=== PATIENT | male | born 1955 | race Caucasian/White ===

== ENCOUNTER 2022-08-17 08:49 | Outpatient (OUT) | payer MEDICARE, OTHER, SELFPAY ==
--- NOTE | 2022-08-17 09:46 | CT_ITS ---
[address] [address] Patient Name: MATIAS SUERO MRN: [id number] date: 1955 Sex: M Assigned Patient Location: CT Current Patient Location: CT Accession/Order Number: [id number] Exam Date: 08/17/2022 10:00 Report Date: 08/17/2022 15:44 At the request of: KELVIN WATTS Procedure: CT lung screening low-dose EXAMINATION: CT lung screening low-dose HISTORY: H/O tobacco abuse Z87.891, Nicotine dependence F17.210 COMPARISON: CT chest 08/15/2021 TECHNIQUE: Axial, Coronal, and Sagittal images were created without the administration of IV contrast material. Dose reduction techniques were achieved by using automated exposure control and/or adjustment of mA and/or kV according to patient size and/or use of iterative reconstruction technique. FINDINGS: LUNGS: Stable appearance of a few calcified nodules compatible with chronic granulomas. Moderate emphysematous changes and mild bronchiectasis. PLEURA: No mass, effusion, or pneumothorax. VASCULATURE: No abnormality. NOA: Calcified lymph nodes compatible with chronic granulomatous disease. MEDIASTINUM: No mass or pathologic adenopathy. CARDIAC: No enlargement, pericardial thickening, or significant calcification. AORTA: No aneurysm or dissection. CHEST WALL: No mass or axillary adenopathy BONES: No bone lesion or fracture. LIMITED ABDOMEN: Sludge within gallbladder. Limited images of the upper abdomen. OTHER: Negative. IMPRESSION: 1. Lung-RADS Category 1 Negative. No nodules and definitely benign nodules. Continue annual screening with LDCT in 12 months. Electronically authenticated by: BRIAN STANLEY Date: 08/17/2022 15:44
== END 2022-08-17 08:50 ==
LOC: CT 08:54
PROVIDERS: PCP Family Medicine; Visit Provider Internal Medicine
DX: Z87.891 Personal history of nicotine dependence (principal); Z12.2 Encounter for screening for malignant neoplasm of respiratory organs
CPT/HCPCS: 71271

== ENCOUNTER 2022-08-17 08:57 | Outpatient (OUT) | payer MEDICARE, OTHER, SELFPAY ==
[2022-08-17 10:27] LABS: Alanine Aminotransferase 30 U/L (16-63); Albumin Level 3.8 g/dL (3.4-5.0); Alkaline Phosphatase 146 U/L (46-116); Aspartate Amino Transferase 23 U/L (15-37); Bilirubin Direct 0.1 mg/dL (0.0-0.2); Bilirubin Total 0.5 mg/dL (0.2-1.0); Chol HDL Ratio 3.1; Cholesterol 186 mg/dL (<=200); Globulin 3.8 g/dL; HDL Cholesterol 60 mg/dL (40-60); LDL Cholesterol Calculated 110.4 mg/dL; Total Protein 7.6 g/dL (6.4-8.2); Triglycerides 78 mg/dL (<=150); VLDL CHOLESTEROL 15.6 mg/dL
== END 2022-08-17 08:58 | disposition home or self-care (01) ==
LOC: LAB 08:58
PROVIDERS: PCP Family Medicine; Visit Provider Nurse Practitioner Family
DX: E78.2 Mixed hyperlipidemia (principal)
CPT/HCPCS: 36415; 80061; 80076

== ENCOUNTER 2023-01-05 14:38 | Emergency (ER) | payer MEDICARE, OTHER, SELFPAY ==
[2023-01-05 14:47] VITALS: BP 127/83; PULSE 95; RESP 18; TEMP 36.7; O2SAT 96; BMI 23.2
--- NOTE | 2023-01-05 14:47 | XR_ITS ---
The [address] [address] Patient Name: MATIAS SUERO MRN: [id number] date: 1955 Sex: M Assigned Patient Location: ED.MAIN Current Patient Location: ED.MAIN Accession/Order Number: [id number] Exam Date: 01/05/2023 14:55 Report Date: 01/05/2023 15:22 At the request of: ELFEGO GREENE Procedure: XR hand LT min 3V STUDY: XR hand LT min 3V, [id number] HISTORY: drill bit laceration left 1st dorsal webspace COMPARISON: None FINDINGS: No acute fracture, dislocation, or suspicious osseous lesion. No radiopaque foreign body. 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 Similar to the lesser degenerative changes throughout the remainder of the hand XR/XR hand LT min 3V IMPRESSION: No acute fracture or radiopaque foreign body. Electronically authenticated by: EMELINA THOMPSON Date: 01/05/2023 15:22
--- NOTE | 2023-01-05 14:49 | ED.WOUNDLAC1 ---
Documented by User: HARVEY Urias 01/05/23 15:23 HPI - Wound/Laceration General Chief Complaint: Wound/Laceration Stated Complaint: UPPER EXTREMITY INJURY LEFT HAND Time Seen by Provider: 01/05/23 14:44 History of Present Illness HPI narrative: 67-year-old male presents to the Emergency Room for evaluation of laceration left dorsal hand 1st dorsal web space. Patient states he was using a drill when the bit broke and subsequently stabbed into his dorsal hand. Patient did not have to undergo out of the soft tissues. He is unsure of his last tetanus, bleeding present but controlled. Patient has a abrasion to the 4th metacarpal ray just proximal to the MCP joint that happened earlier in the day. Patient appears in no distress. Patient states the other half of the drill bit was found he does not believe anything is retained within his skin. Patient reports pain is tolerable, but could tell that he needed sutures by the size of the laceration and bleeding. Onset (ago): minute(s) Location: Reports other (left hand) Extremity Location: Left: hand Place: Reports home Related Data Previous Rx's Medication Instructions Recorded cephalexin 500 mg capsule 500 mg PO TID 5 days #15 caps 01/05/23 Allergies Allergy/AdvReac Type Severity Reaction Status Date / Time No Known Drug Allergies Allergy Verified 01/05/23 14:47 Review of Systems ROS Constitutional Denies: fever, chills or change in weight Ears, nose, mouth, and throat Denies: throat pain, neck pain or throat swelling Cardiovascular Denies: chest pain or palpitations Respiratory Denies: shortness of breath Gastrointestinal Denies: abdominal pain or nausea Musculoskeletal Reports: extremity pain; Denies: back pain or neck pain Integumentary/Breast Denies: rash Neurological Denies: headache PFSH PFSH Social History Smoking status: Former smoker Exam Narrative Exam Narrative: Nurse's notes and vital signs reviewed. Patient is not hypoxic. General: The patient appears well and in no apparent distress. Patient is resting comfortably on cart. Skin: Warm, dry, no pallor noted.2 cm irregular-shaped laceration 1st dorsal webspace left hand, minimal redness bleeding. Head: Normocephalic, atraumatic Eye: Normal conjunctiva Respiratory: Patient is in no distress Musculoskeletal: The left wrist shows no obvious deformity. positive soft tissue skin laceration. waiting controlled, patient is able to make the okay sign without difficulty opposing thumb to all digits. He denies any numbness or tingling. Patient also demonstrates thumb abduction without difficulty. No evidence of nerve or motor palsy. There was no swelling noted. The patient had full range of motion of the thumb and index finger. The patient had tenderness noted just to the laceration. The patient had no tenderness in the anatomical snuff box. The patient had no pain with axial loading of the thumb. no pain with gentle stressing of the ulnar collateral. Pulses are intact at brachial and radial 2+. There was no deficit at the elbow or shoulder. The patient has normal capillary refill to all distal digits. The patient has no evidence of cyanosis or mottling. The patient is able to flex and extend all digits without difficulty. Neurological: A&O x4, normal sensory, normal motor Psychiatric: Cooperative Constitutional Vital Signs, click to edit/add: Last Vital Signs Temp 98.0 F 01/05/23 14:47 Pulse 88 01/05/23 15:22 Resp 18 01/05/23 15:22 BP 127/83 01/05/23 14:47 Pulse Ox 95 01/05/23 15:22 O2 Del Method Room Air 01/05/23 14:47 Course Vital Signs Vital signs: Vital Signs Temperature 98.0 F 01/05/23 14:47 Pulse Rate 95 H 01/05/23 14:47 Respiratory Rate 18 01/05/23 14:47 Blood Pressure 127/83 01/05/23 14:47 Pulse Oximetry 96 01/05/23 14:47 Oxygen Delivery Method Room Air 01/05/23 14:47 Temperature 98.0 F 01/05/23 14:47 Pulse Rate 88 01/05/23 15:22 Respiratory Rate 18 01/05/23 15:22 Blood Pressure 127/83 01/05/23 14:47 Pulse Oximetry 95 01/05/23 15:22 Oxygen Delivery Method Room Air 01/05/23 14:47 MDM - Wound/Laceration MDM Narrative Medical decision making narrative: patient's tetanus was updated. Discussed thorough irrigation, x-ray performed to rule out retained foreign body or fracture. Injury appears to be soft tissue only 1st dorsal webspace with impedance on function. No numbness or tingling. wound care discussed. reviewed environment that the drilling happened, recommend Keflex three times a day for five days. Patient agreeable, we'll focus on ice and elevation. The patient is to followup with primary care physician in next 2-3 days for wound recheck and removal of sutures in 10 days or to return to the emergency department should any of the signs or symptoms worsen or new symptoms develop. Patient had questions answered. The patient agrees with the following Diagnosis and Treatment plan and the patient will be discharged home. Discharge Plan Discharge Chief Complaint: Wound/Laceration Clinical Impression: Laceration of hand, left Patient Disposition: Home, Self-Care Time of Disposition Decision: 15:00 Condition: Good Mode of Transportation: Private Vehicle Prescriptions / Home Meds: New cephalexin 500 mg capsule 500 mg PO TID 5 Days Qty: 15 0RF Instructions: Laceration (ED) Additional Instructions: Recommend wound recheck in 2-3 days and suture removal in ten days Stand Alone Forms: Portal Instructions Referrals: Werner Cobb MD [Primary Care Provider] - 1 week Discharge Date/Time: 01/05/23 15:25 Procedures ED Laceration Laceration Laceration 1: Additional comments: Laceration repair: Done under sterile conditions. The use of Betadine was used to prep and clean the area. Local injection with lidocaine 1% was used, approximately3 cc. The wound was irrigated copiously with normal saline. The wound was explored there was no evidence of foreign material. The laceration was approximated with 4-0 nylon. 4 simple interrupted sutures were placed. Patient tolerated the procedure well. The patient was neurovascularly intact post. the patient had bacitracin applied to the laceration and a dry sterile dressing was place. The patient will need to follow-up in the next 10 days for removal. Documented by User: Aristeo Gandara MD 01/05/23 18:53 HPI - Wound/Laceration General Chief Complaint: Wound/Laceration Stated Complaint: UPPER EXTREMITY INJURY LEFT HAND Time Seen by Provider: 01/05/23 14:44 Related Data Previous Rx's Medication Instructions Recorded cephalexin 500 mg capsule 500 mg PO TID 5 days #15 caps 01/05/23 Allergies Allergy/AdvReac Type Severity Reaction Status Date / Time No Known Drug Allergies Allergy Verified 01/05/23 14:47 PFSH PFSH Social History Smoking status: Former smoker Exam Constitutional Vital Signs, click to edit/add: Last Vital Signs Temp 98.0 F 01/05/23 14:47 Pulse 88 01/05/23 15:22 Resp 18 01/05/23 15:22 BP 127/83 01/05/23 14:47 Pulse Ox 95 01/05/23 15:22 O2 Del Method Room Air 01/05/23 14:47 Course Vital Signs Vital signs: Vital Signs Temperature 98.0 F 01/05/23 14:47 Pulse Rate 95 H 01/05/23 14:47 Respiratory Rate 18 01/05/23 14:47 Blood Pressure 127/83 01/05/23 14:47 Pulse Oximetry 96 01/05/23 14:47 Oxygen Delivery Method Room Air 01/05/23 14:47 Temperature 98.0 F 01/05/23 14:47 Pulse Rate 88 01/05/23 15:22 Respiratory Rate 18 01/05/23 15:22 Blood Pressure 127/83 01/05/23 14:47 Pulse Oximetry 95 01/05/23 15:22 Oxygen Delivery Method Room Air 01/05/23 14:47 MDM - Wound/Laceration MDM Narrative Medical decision making narrative: patient's tetanus was updated. Discussed thorough irrigation, x-ray performed to rule out retained foreign body or fracture. Injury appears to be soft tissue only 1st dorsal webspace with impedance on function. No numbness or tingling. wound care discussed. reviewed environment that the drilling happened, recommend Keflex three times a day for five days. Patient agreeable, we'll focus on ice and elevation. The patient is to followup with primary care physician in next 2-3 days for wound recheck and removal of sutures in 10 days or to return to the emergency department should any of the signs or symptoms worsen or new symptoms develop. Patient had questions answered. The patient agrees with the following Diagnosis and Treatment plan and the patient will be discharged home. I, Dr Gandara, have reviewed the above progress note and course of action in the ER; agree with the above. I have gone over history and physical, and discussed disposition and treatment plan with the patient. Discharge Plan Discharge Chief Complaint: Wound/Laceration Clinical Impression: Laceration of hand, left Patient Disposition: Home, Self-Care Time of Disposition Decision: 15:00 Condition: Good Mode of Transportation: Private Vehicle Prescriptions / Home Meds: New cephalexin 500 mg capsule 500 mg PO TID 5 Days Qty: 15 0RF Instructions: Laceration (ED) Additional Instructions: Recommend wound recheck in 2-3 days and suture removal in ten days Stand Alone Forms: Portal Instructions Referrals: Werner Cobb MD [Primary Care Provider] - 1 week Discharge Date/Time: 01/05/23 15:25
[2023-01-05] MEDS: BACITRACIN 0.9 GM PACKET 1 PACKET TOPICAL (15:01)
[2023-01-05] MEDS: LIDOCAINE HCL 1% PF 50 MG/5 ML VIAL INJ (15:01)
[2023-01-05] MEDS: ADACEL DIPH,PERTUSS(ACELL),TET VAC/PF 0.5 ML ADULT SYRINGE IM (15:02)
[2023-01-05] MEDS: SODIUM CHLORIDE 0.9% IRRIG SOLUTION 1,000 ML BOTTLE 1000 ML IRR (15:02)
[2023-01-05 15:22] VITALS: PULSE 88; RESP 18; O2SAT 95
== END 2023-01-05 15:25 | disposition home or self-care (01) ==
PROVIDERS: Emergency Provider Emergency Medicine; PCP Family Medicine
DX: S61.412A Laceration without foreign body of left hand, initial encounter (principal); Z23 Encounter for immunization; W29.8XXA Contact with other powered hand tools and household machinery, initial encounter; Z87.891 Personal history of nicotine dependence
CPT/HCPCS: 12001; 73130; 90471; 90715; 99283

== ENCOUNTER 2023-08-15 12:44 | Outpatient (OUT) | payer MEDICARE, OTHER, SELFPAY ==
--- NOTE | 2023-08-15 13:00 | CA_ITS ---
Patient Name: MATIAS SUERO MR#: [id number] : 1955 Exam Date: 08/15/2023 Ordering Doctor: MARTINA GRIFFITH M.D. ECHOCARDIOGRAM REPORT PROCEDURE: CA ECHO DOPPLER COMPLETE INDICATIONS: Pre-operative noncardiac surgery COMPARISON: None. DESCRIPTION: COMPLETE ECHOCARDIOGRAM Real-time transthoracic echocardiography with 2D, M-mode, spectral and color flow Doppler performed. QUALITY: Technical quality was fair. 70 , 140#, BP 110/72 LEFT VENTRICLE: Normal chamber size. Thickened septal wall. Normal systolic function. LV EF: Normal left ventricular ejection fraction, (55%). DIASTOLIC: Diastolic function is indeterminate. ATRIAL SEPTUM: Viusally appears intact. LEFT ATRIUM: Mild dilatation. RIGHT ATRIUM: Normal chamber size. RIGHT VENTRICLE: Normal chamber size. Normal right ventricular systolic function. TRICUSPID VALVE: Normal mobility and thickness. No stenosis with no regurgitation. Unable to assess right-sided pressures due to lack of measurable tricuspid regurgitation. MITRAL VALVE: Normal mobility and thickness. No evidence of mitral valve stenosis. There is no mitral annular calcification. Trivial mitral regurgitation. AORTIC VALVE: Not well visualized. No evidence of aortic valve stenosis. No aortic regurgitation. AORTIC ROOT: Normal diameter and appearance. PULMONIC VALVE: Not well visualized. No regurgitation. PERICARDIUM: Trivial pericardial effusion. IVC: Collapses with inspirations. PLEURA: CONCLUSION: 1. Normal ventricular size and systolic function. LVEF is 55%. 2. No significant valvular dysfunction. 3. Unable to assess right-sided pressures due to lack of measurable tricuspid regurgitation. 4. Trivial pericardial effusion. Adult Echocardiography Procedure Report Left Ventricle LVEDD (3.7 - 5.6 cm): 4.00 cm LVESD (2.2 - 4.0 cm): 3.30 cm LVIVS thickness (0.6 - 1.2 cm): 1.06 cm LVPW thickness (0.5 - 1.0 cm): 0.92 cm e': 0.10 m/s E - e': 5.70 LVOT Max Gradient: 2.28 mm[Hg], 2.46 mm[Hg] Peak Velocity (LVOT): 0.75 m/s, 0.78 m/s LVOT Diameter 2.17 cm Left Atrium LA Volume Index (2D A2C): 43.06 ml/m2 Left Atrium Systolic Dimension: 3.66 cm Mitral Valve MV E to A Ratio: 0.51 Mitral Valve A-Wave Peak Velocity: 1.16 m/s Mitral Valve E-Wave Peak Velocity: 0.59 m/s Right Ventricle Aorta AO Root Diam: 2.68 cm Aortic Valve AoV Area (Peak David): 3.48 cm2, 3.35 cm2 AoV Area (VTI): 3.05 cm2, 2.72 cm2 Peak Velocity(Antegrade Flow): 0.84 m/s Peak Gradient(Antegrade Flow): 2.79 mm[Hg] Mean Velocity(Antegrade Flow): 0.53 m/s Mean Gradient(Antegrade Flow): 1.36 mm[Hg] Velocity Time Integral: 14.91 cm Tricuspid Valve Pulmonic Valve Peak Velocity: 0.65 m/s Peak Gradient: 1.69 mm[Hg] Right Atrium Right Atrium Systolic Pressure: 46.94 ml, 46.94 ml Dictated by: Shravan Marte M.D. on 08/17/2023 at 18:00 Approved by: Shravan Marte M.D. on 08/17/2023 at 18:02
== END 2023-08-15 12:45 | disposition home or self-care (01) ==
LOC: CARD 12:45
PROVIDERS: PCP Family Medicine; Visit Provider Internal Medicine Cardiovascular Disease
DX: Z01.810 Encounter for preprocedural cardiovascular examination (principal); Z01.818 Encounter for other preprocedural examination
CPT/HCPCS: 93306

== ENCOUNTER 2023-08-23 08:00 | Outpatient (OUT) | payer MEDICARE, OTHER, SELFPAY ==
--- NOTE | 2023-08-23 | PCN_ITS ---
CARDIAC STRESS TEST Requesting Physician: Procedure Date: 08/23/2023 This was a Lexiscan stress test with myocardial perfusion imaging, performed at the [facility] on 08/23/2023. Informed consent was obtained. The patient was attached to electrocardiographic monitoring. An intravenous line was secured. Resting vital signs and ECG were obtained. Lexiscan 0.4 mg was administered intravenously, followed by administration of Cardiolite. The patient then went on to obtain myocardial perfusion imaging. Resting heart rate was 80 BPM and maximum heart rate was 118 BPM. Resting blood pressure was 126/78 and maximum blood pressure was 126/78. Resting ECG showed evidence of sinus rhythm without ischemic changes. ECG following infusion of Lexiscan, showed sinus tachycardia without ischemic ECG changes. Final ECG was comparable to baseline. SUMMARY OF THE FINDINGS: 1. No evidence of ischemic ECG changes seen following infusion of Lexiscan. 2. Myocardial perfusion imaging will be reported separately. MTDD
--- NOTE | 2023-08-23 07:50 | NM_ITS ---
Patient Name: MATIAS SUERO MR#: [id number] : 1955 Exam Date: 08/23/2023 Ordering Doctor: MARTINA GRIFFITH M.D. RADIOLOGY REPORT PROCEDURE: NM NATALIE PERF SPECT REST STR COMPARISON: None. INDICATIONS: PRE PROCEDURE CARDIOVASCULAR EXAM TECHNIQUE: Exam Description: Stress/Rest one day protocol gated SPECT Rest Imagin.1 mCi Tc-99m Cardiolite IV on 08/23/2023 Stress Imaging 30.5 mCi Tc-99m Cardiolite IV on 08/23/2023 Exercise Protocol: 0.4 mg Lexiscan given IV Heart Rate (bpm): Rest: 80 Max: 118 PMHR: 76 Blood Pressure: Rest: 126/78 Max: 126/78 Symptoms: Rest and peak stress ECG findings were pending and the exercise portion of the study was pending per attending physician Dr. NICE . For more details please see separate cardiac stress test report. FINDINGS: QUALITY OF STUDY: PERFUSION DEFECT: LOCATION: Basal inferoseptal. Basal inferior. Mid-inferoseptal. Mid-inferior. Apical inferior. [place]. SIZE: Large (5 or more segments). SEVERITY: Severe. TYPE: Mixed. WALL MOTION: Mild hypokinesis: LV SIZE: Normal. 61 mL. TID / TCD: None; 0.7 LVEF: Normal. Calculated EF 69%. SUMMARY: Myocardial perfusion imaging study has ABNORMAL findings. CONCLUSION: 1. Large transmural defect in the inferior wall on stress images with partial redistribution on rest images. An area partial reversible ischemia is suspected. Follow-up is recommended 2. Pending exercise test results Dictated by: Poncho Monroy MD on 08/23/2023 at 14:46 Approved by: Poncho Monroy MD on 08/23/2023 at 14:48
[2023-08-23] MEDS: REGADENOSON 0.4 MG/5 ML SYRINGE 0.400000000000000022 MG IV (09:56)
--- NOTE | 2023-08-23 10:08 | PC.NURSE ---
Nursing Note Cardiac Stress Test Reviewed: Medication, allergies and patient history reviewed. Stress Test: [x ] Patient tolerated stress test well. [ ] Patient unable to tolerate walking on treadmill. Switched to Lexiscan stress test. [x ] No chest pain noted per patient [ ] Chest pain that resolved prior to leaving stress lab. [ x] No dyspnea noted. [ ] Dyspnea that resolved prior to leaving stress lab. [ x] Patient left stress lab asymptomatic and hemodynamically stable. [ ] Patient taken to the Emergency Room due to non-resolving symptoms following stress test. [ ] Patient achieved target heart rate. [ ] Patient unable to achieve target heart rate. [ ] Aminophylline administered as reversal agent to Lexiscan (Regadenoson). [ ] Nitro administered. Nursing Comments: Pt had lexiscan test done. Tolerated well. No symptoms per pt. Pt was taken to cafeteria in wheelchair for breakfast.
== END 2023-08-23 08:01 | disposition home or self-care (01) ==
LOC: NM 08:01
PROVIDERS: PCP Family Medicine; Visit Provider Internal Medicine Cardiovascular Disease
DX: Z01.810 Encounter for preprocedural cardiovascular examination (principal); Z01.818 Encounter for other preprocedural examination
CPT/HCPCS: 78452; 93017; A9500; J2785

== ENCOUNTER 2023-09-05 11:38 | Outpatient (OUT) | payer MEDICARE, OTHER, SELFPAY ==
[2023-09-05 12:13] LABS: Anion Gap 11.6; BUN Creatinine Ratio 10.5; Calcium 8.7 mg/dL (8.5-10.1); Carbon Dioxide 28.2 mmol/L (21.0-32.0); Chloride 103 mmol/L (98-107); Estimated GFR (African America >60 (>=60); Estimated GFR (Non-African Ame >60 (>=60); Glucose 84 mg/dL (74-106); Potassium 3.8 mmol/L (3.5-5.1); Sodium 139 mmol/L (136-145)
== END 2023-09-05 11:39 | disposition home or self-care (01) ==
LOC: LAB 11:42
PROVIDERS: PCP Family Medicine; Visit Provider Family Medicine
DX: E87.1 Hypo-osmolality and hyponatremia (principal)
CPT/HCPCS: 36415; 80048

== ENCOUNTER 2023-09-14 12:40 | Outpatient (OUT) | payer MEDICARE, OTHER, SELFPAY ==
[2023-09-14 13:29] LABS: Anion Gap 10.9; BUN Creatinine Ratio 9.2; Calcium 8.5 mg/dL (8.5-10.1); Carbon Dioxide 28.8 mmol/L (21.0-32.0); Chloride 104 mmol/L (98-107); Estimated GFR (African America >60 (>=60); Estimated GFR (Non-African Ame >60 (>=60); Glucose 93 mg/dL (74-106); Potassium 3.7 mmol/L (3.5-5.1); Sodium 140 mmol/L (136-145)
[2023-09-14 13:46] LABS: Basophils Percent Auto 0.5 % (0.2-2.0); Eosinophils Absolute Auto 0.1 10^3/uL (0.0-0.7); Eosinophils Percent Auto 1.6 % (0.9-7.0); Hemoglobin 12.2 g/dL (14.0-18.0); Immature Granulocytes Abs Auto 0.03 10^3/uL (0.00-0.03); Immature Granulocytes Pct Auto 0.5 % (0.0-0.5); Lymphocytes Absolute Auto 1.3 10^3/uL (1.2-3.8); Lymphocytes Percent Auto 21.1 % (20.5-60.0); Mean Corpuscular HGB Conc 31.3 g/dL (29.9-35.2); Mean Corpuscular Hemoglobin 28.8 pg (25.9-34.0); Mean Corpuscular Volume 92.2 fL (80.0-94.0); Mean Platelet Volume 8.7 fL (9.5-13.5); Monocytes Absolute Auto 0.7 10^3/uL (0.3-0.8); Monocytes Percent Auto 10.9 % (1.7-12.0); Neutrophils Absolute Auto 4.1 10^3/uL (1.4-6.5); Neutrophils Percent Auto 65.4 % (43.0-75.0); Platelet Count 296 10^3/uL (150-450); Red Blood Count 4.23 10^6/uL (4.70-6.10); Red Cell Distribution Width 13.2 % (11.0-15.0); White Blood Count 6.3 10^3/uL (4.0-11.0)
== END 2023-09-14 12:41 | disposition home or self-care (01) ==
LOC: LAB 12:42
PROVIDERS: PCP Family Medicine; Visit Provider Internal Medicine Cardiovascular Disease
DX: R94.39 Abnormal result of other cardiovascular function study (principal)
CPT/HCPCS: 36415; 80048; 85025

== ENCOUNTER 2023-11-22 09:46 | Outpatient (OUT) | payer MEDICARE, OTHER, SELFPAY ==
--- NOTE | 2023-11-22 09:51 | CT_ITS ---
[address] [address] Patient Name: MATIAS SUERO MRN: [id number] date: 1955 Sex: M Assigned Patient Location: CT Current Patient Location: Accession/Order Number: [id number] Exam Date: 11/22/2023 10:00 Report Date: 11/23/2023 07:56 At the request of: KELVIN WATTS Procedure: CT lung screening low-dose EXAMINATION: CT lung screening low-dose HISTORY: History Of Tobacco Dependence Z87.891 COMPARISON: No relevant comparison available. TECHNIQUE: Axial, Coronal, and Sagittal images were created without the administration of IV contrast material. Dose reduction techniques were achieved by using automated exposure control and/or adjustment of mA and/or kV according to patient size and/or use of iterative reconstruction technique. FINDINGS: LUNGS: Dense calcified granuloma within right middle lobe. Mild bronchiectasis within left lower lobe basilar segments and associated mild atelectasis. No suspicious nodules or acute infiltrates. PLEURA: No mass, effusion, or pneumothorax. VASCULATURE: No abnormality. NOA: Calcified lymph nodes suggestive of chronic granulomatous disease. MEDIASTINUM: Calcified lymph nodes. CARDIAC: Trace amount of pericardial fluid. No cardiac enlargement. Coronary Artery calcifications: Coronary calcifications are mild. AORTA: No aneurysm or dissection. CHEST WALL: No mass or axillary adenopathy BONES: No bone lesion or fracture. LIMITED ABDOMEN: No suspicious findings. Limited images of the upper abdomen. OTHER: Negative. CT/CT lung screening low-dose IMPRESSION: 1. Lung-RADS 2- Benign Appearance or Behavior. Nodules with a very low likelihood of becoming a clinically active cancer due to size or lack of growth. Follow-up CT Chest in 1 year. 2. Trace amount of pericardial fluid; nonspecific but greater than previously seen. Electronically authenticated by: BRIAN STANLEY Date: 11/23/2023 07:56
== END 2023-11-22 09:47 | disposition home or self-care (01) ==
LOC: CT 09:47
PROVIDERS: PCP Family Medicine; Visit Provider Internal Medicine
DX: Z87.891 Personal history of nicotine dependence (principal); Z12.2 Encounter for screening for malignant neoplasm of respiratory organs
CPT/HCPCS: 71271

== ENCOUNTER 2023-12-31 09:58 | Outpatient (OUT) | payer MEDICARE, OTHER, SELFPAY ==
[2023-12-31 10:17] LABS: Basophils Absolute Auto 0.1 10^3/uL (0.0-0.1); Basophils Percent Auto 0.5 % (0.2-2.0); Eosinophils Absolute Auto 0.2 10^3/uL (0.0-0.7); Eosinophils Percent Auto 1.7 % (0.9-7.0); Hematocrit 46.4 % (42.0-54.0); Hemoglobin 15.8 g/dL (14.0-18.0); Immature Granulocytes Abs Auto 0.02 10^3/uL (0.00-0.03); Immature Granulocytes Pct Auto 0.2 % (0.0-0.5); Lymphocytes Absolute Auto 1.3 10^3/uL (1.2-3.8); Lymphocytes Percent Auto 13.7 % (20.5-60.0); Mean Corpuscular HGB Conc 34.1 g/dL (29.9-35.2); Mean Corpuscular Hemoglobin 29.8 pg (25.9-34.0); Mean Corpuscular Volume 87.4 fL (80.0-94.0); Mean Platelet Volume 8.4 fL (9.5-13.5); Monocytes Absolute Auto 0.6 10^3/uL (0.3-0.8); Monocytes Percent Auto 6.2 % (1.7-12.0); Neutrophils Absolute Auto 7.3 10^3/uL (1.4-6.5); Neutrophils Percent Auto 77.7 % (43.0-75.0); Platelet Count 232 10^3/uL (150-450); Red Blood Count 5.31 10^6/uL (4.70-6.10); Red Cell Distribution Width 12.7 % (11.0-15.0); White Blood Count 9.4 10^3/uL (4.0-11.0)
[2023-12-31 11:54] LABS: Alanine Aminotransferase <6 U/L (16-63); Albumin Level 3.6 g/dL (3.4-5.0); Alkaline Phosphatase 162 U/L (46-116); Anion Gap 14.7; Aspartate Amino Transferase 12 U/L (15-37); BUN Creatinine Ratio 19.8; Bilirubin Total 0.6 mg/dL (0.2-1.0); Calcium 9.4 mg/dL (8.5-10.1); Carbon Dioxide 27.3 mmol/L (21.0-32.0); Chloride 104 mmol/L (98-107); Chol HDL Ratio 1.8; Cholesterol 142 mg/dL (<=200); Estimated GFR (African America >60 (>=60 mL/min/1.73m^2); Estimated GFR (Non-African Ame >60 (>=60 mL/min/1.73m^2); Free T3 2.96 pg/mL (2.18-3.98); Globulin 3.7 g/dL; Glucose 93 mg/dL (74-106); HDL Cholesterol 79 mg/dL (40-60); Sodium 142 mmol/L (136-145); Thyroid Stimulating Hormone 1.547 uIU/mL (0.358-3.740); Total Protein 7.3 g/dL (6.4-8.2); Triglycerides 42 mg/dL (<=150); VLDL CHOLESTEROL 8.4 mg/dL
[2023-12-31 13:31] LABS: Prostate Specific Antigen Scrn 1.26 ng/mL (<=4.00)
[2024-01-02 02:32] LABS: Estimated Average Glucose 103 mg/dL; Glycohemoglobin A1C 5.2 % (4.5-6.2)
== END 2023-12-31 09:59 | disposition home or self-care (01) ==
LOC: LAB 10:00
PROVIDERS: PCP Family Medicine; Visit Provider Family Medicine
DX: I10 Essential (primary) hypertension (principal); G04.90 Encephalitis and encephalomyelitis, unspecified; J44.9 Chronic obstructive pulmonary disease, unspecified; K92.2 Gastrointestinal hemorrhage, unspecified; N40.1 Benign prostatic hyperplasia with lower urinary tract symptoms; E78.5 Hyperlipidemia, unspecified; R53.83 Other fatigue; R73.09 Other abnormal glucose; E03.9 Hypothyroidism, unspecified; Z12.5 Encounter for screening for malignant neoplasm of prostate
CPT/HCPCS: 36415; 80053; 80061; 83036; 84436; 84443; 84481; 85025; G0103

== ENCOUNTER 2024-01-21 08:28 | Outpatient (OUT) | payer MEDICARE, OTHER, SELFPAY ==
[2024-01-21 09:21] LABS: Anion Gap 13.5; BUN Creatinine Ratio 11.7; Calcium 9.3 mg/dL (8.5-10.1); Carbon Dioxide 27.7 mmol/L (21.0-32.0); Chloride 105 mmol/L (98-107); Estimated GFR (African America >60 (>=60 mL/min/1.73m^2); Estimated GFR (Non-African Ame >60 (>=60 mL/min/1.73m^2); Glucose 102 mg/dL (74-106); Potassium 4.2 mmol/L (3.5-5.1); Sodium 142 mmol/L (136-145)
== END 2024-01-21 08:29 | disposition home or self-care (01) ==
LOC: LAB 08:30
PROVIDERS: PCP Family Medicine; Visit Provider Family Medicine
DX: R79.9 Abnormal finding of blood chemistry, unspecified (principal)
CPT/HCPCS: 36415; 80048

== ENCOUNTER 2024-11-24 07:41 | Outpatient (OUT) | payer MEDICARE, OTHER, SELFPAY ==
--- OUTSIDE RECORDS SUMMARY | 2024-06-06 11:07 | XMS_ITS ---
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 layers of the colon. You may have a few pouches or many of them. What are the causes? The cause of this condition is not known. What increases the risk? The following factors may make you more likely to develop this condition: ??? Being older than age 60. Your risk for this condition increases with age. Diverticulosis is rare among people younger than age 30. By age 80, many people have it. ??? Eating a low-fiber diet. ??? Having frequent constipation. ??? Being overweight. ??? Not getting enough exercise. ??? Smoking. ??? Taking otgl-xxv-jcingod pain medicines, like aspirin and ibuprofen. ??? Having a family history of diverticulosis. What are the signs or symptoms? In most people, there are no symptoms of this condition. If you do have symptoms, they may include: ??? Bloating. ??? Cramps in the abdomen. ??? Constipation or diarrhea. ??? Pain in the lower left side of the abdomen. How is this diagnosed? This condition is most often diagnosed during an exam for other colon problems. Because diverticulosis usually has no symptoms, it often cannot be diagnosed independently. This condition may be diagnosed by: ??? Using a flexible scope to examine the colon (colonoscopy). ??? Taking an X-ray of the colon after dye has been put into the colon (barium enema). ??? Doing a CT scan. How is this treated? You may not need treatment for this condition if you have never developed an infection related to diverticulosis. If you have had an infection before, treatment may include: ??? Eating a high-fiber diet. This may include eating more fruits, vegetables, and grains. ??? Taking a fiber supplement. ??? Taking a live bacteria supplement (probiotic). ??? Taking medicine to relax your colon. ??? Taking antibiotic medicines. Follow these instructions at home: ??? Drink 6???8 glasses of water or more each day to prevent constipation. ??? Try not to strain when you have a bowel movement. ??? If you have had an infection before: ? Eat more fiber as directed by your health care provider or your diet and acute specialist (dietitian). ? Take a fiber supplement or probiotic, if your health care provider approves. ??? Take ihcd-gkb-nyalmes and prescription medicines only as told by your health care provider. ??? If you were prescribed an antibiotic, take it as told by your health care provider. Do not stop taking the antibiotic even if you start to feel better. ??? Keep all follow-up visits as told by your health care provider. This is important. Contact a health care provider if: ??? You have pain in your abdomen. ??? You have bloating. ??? You have cramps. ??? You have not had a bowel movement in 3 days. Get help right away if: ??? Your pain gets worse. ??? Your bloating becomes very bad. ??? You have a fever or chills, and your symptoms suddenly get worse. ??? You vomit. ??? You have bowel movements that are bloody or black. ??? You have bleeding from your rectum. Summary ??? Diverticulosis is a condition that develops when small pouches (diverticula) form in the wall of the large intestine (colon). ??? You may have a few pouches or many of them. ??? This condition is most often diagnosed during an exam for other colon problems. ??? If you have had an infection related to diverticulosis, treatment may include increasing the fiber in your diet, taking supplements, or taking medicines. This information is not intended to replace advice given to you by your health care provider. Make sure you discuss any questions you have with your health care provider. Document Released: 2004 Document Revised: 01/25/2018 Document Reviewed: 01/01/2017 Elsevier Patient Education ??? 2020 [employer] Common Emergency Awareness Tips IS IT A STROKE? Act FAST and Check for these signs: FACE Does the face look uneven? ARM Does one arm drift down? SPEECH Does their speech sound strange? TIME Call at any sign of stroke Heart Attack Signs Chest discomfort: Most heart attacks involve discomfort in the center of the chest and lasts more than a few minutes, or goes away and comes back. It can feel like uncomfortable pressure, squeezing, fullness or pain. Discomfort in upper body: Symptoms can include pain or discomfort in one or both arms, back, neck, jaw or stomach. Shortness of breath: With or without discomfort. Other signs: Breaking out in a cold sweat, nausea, or lightheaded. Remember, MINUTES DO MATTER. If you experience any of these heart attack warning signs, call to get immediate medical attention! Patient Survey You may receive a survey in the mail asking you about your stay with us. We want to hear from you, please share your experience with us by completing your survey. Thank you for choosing [facility]. Rosie Award Nomination The ROSIE (Diseases Attacking the Immune SYstem) Award is an international recognition program that honors and celebrates the skillful, compassionate care nurses provide every day. Anyone who experiences or observes amazing care being provided by a nurse is encouraged to submit a nomination. To nominate your nurse, use your smart phone to scan the QR code below. Patient Portal You may access all of your results and other medical record information on our secure patient portal. If you are not signed up for this yet, please contact [employer] at [phone] to get signed up today. Patient Name: MATIAS SUERO I have received this information and my questions have been answered. Patient/Non Acoustic Operator Name: Patient/Non Acoustic Operator Signature: Relationship to Patient: Witness Name/Signature: Date: Result Comment: Electronical ly Signed By: Arti Aiken.br\Date and Time Signed: 03/31/24 08:20 EST PATIENT EDUCATION - TEXT Observed: 03/31 8:19 AM Status: C Source: [facility] Patient Education - Text Colonoscopy Care After Surgery Please read the instructions outlined below and refer to this sheet in the next few weeks. These discharge instructions provide you with general information on caring for yourself after you leave the hospital. Your doctor may also give you specific instructions. While your treatment has been planned according to the most current medical practices available, unavoidable complications occasionally occur. If you have any problems or questions after discharge, please call your doctor. ACTIVITY You may resume your regular activity, but move at a slower pace for the next 24 hours. Take frequent rest periods for the next 24 hours. Walking will help get rid of the air and reduce the bloated feeling in your abdomen (belly). No driving for 24 hours (because of the anesthesia (medicine) used during the test). You may shower. Do not sign any important legal documents or operate any machinery for 24 hours (because of the anesthesia used during the test). NUTRITION Drink plenty of fluids. You may resume your normal diet as instructed by your doctor. Begin with a light meal and progress to your normal diet. Heavy or fried foods are harder to digest and may make you feel nauseated (sick to your stomach). Avoid alcoholic beverages for 24 hours or as instructed. MEDICATIONS You may resume your normal medications unless your doctor tells you otherwise. WHAT YOU CAN EXPECT TODAY Some feelings of bloating in the abdomen. Passage of more gas than usual. Spotting of blood in your stool or on the toilet paper. FOLLOW-UP Your doctor will discuss the results of your test with you. SEEK IMMEDIATE MEDICAL ATTENTION IF: There is more than a spotting of blood in your stool. There is abdominal distention (your abdomen is swollen). There is vomiting. You have a temperature over 101.5 F. There is abdominal pain or discomfort that is severe or gets worse throughout the day. Diverticulosis Diverticulosis is a condition that develops when small pouches (diverticula) form in the wall of the large intestine (colon). The colon is where water is absorbed and stool is formed. The pouches form when the inside layer of the colon pushes through weak spots in the outer layers of the colon. You may have a few pouches or many of them. What are the causes? The cause of this condition is not known. What increases the risk? The following factors may make you more likely to develop this condition: ??? Being older than age 60. Your risk for this condition increases with age. Diverticulosis is rare among people younger than age 30. By age 80, many people have it. ??? Eating a low-fiber diet. ??? Having frequent constipation. ??? Being overweight. ??? Not getting enough exercise. ??? Smoking. ??? Taking ezdt-lkv-gidizer pain medicines, like aspirin and ibuprofen. ??? Having a family history of diverticulosis. What are the signs or symptoms? In most people, there are no symptoms of this condition. If you do have symptoms, they may include: ??? Bloating. ??? Cramps in the abdomen. ??? Constipation or diarrhea. ??? Pain in the lower left side of the abdomen. How is this diagnosed? This condition is most often diagnosed during an exam for other colon problems. Because diverticulosis usually has no symptoms, it often cannot be diagnosed independently. This condition may be diagnosed by: ??? Using a flexible scope to examine the colon (colonoscopy). ??? Taking an X-ray of the colon after dye has been put into the colon (barium enema). ??? Doing a CT scan. How is this treated? You may not need treatment for this condition if you have never developed an infection related to diverticulosis. If you have had an infection before, treatment may include: ??? Eating a high-fiber diet. This may include eating more fruits, vegetables, and grains. ??? Taking a fiber supplement. ??? Taking a live bacteria supplement (probiotic). ??? Taking medicine to relax your colon. ??? Taking antibiotic medicines. Follow these instructions at home: ??? Drink 6???8 glasses of water or more each day to prevent constipation. ??? Try not to strain when you have a bowel movement. ??? If you have had an infection before: ? Eat more fiber as directed by your health care provider or your diet and acute specialist (dietitian). ? Take a fiber supplement or probiotic, if your health care provider approves. ??? Take cicn-ebz-rvlnowt and prescription medicines only as told by your health care provider. ??? If you were prescribed an antibiotic, take it as told by your health care provider. Do not stop taking the antibiotic even if you start to feel better. ??? Keep all follow-up visits as told by your health care provider. This is important. Contact a health care provider if: ??? You have pain in your abdomen. ??? You have bloating. ??? You have cramps. ??? You have not had a bowel movement in 3 days. Get help right away if: ??? Your pain gets worse. ??? Your bloating becomes very bad. ??? You have a fever or chills, and your symptoms suddenly get worse. ??? You vomit. ??? You have bowel movements that are bloody or black. ??? You have bleeding from your rectum. Summary ??? Diverticulosis is a condition that develops when small pouches (diverticula) form in the wall of the large intestine (colon). ??? You may have a few pouches or many of them. ??? This condition is most often diagnosed during an exam for other colon problems. ??? If you have had an infection related to diverticulosis, treatment may include increasing the fiber in your diet, taking supplements, or taking medicines. This information is not intended to replace advice given to you by your health care provider. Make sure you discuss any questions you have with your health care provider. Document Released: 2004 Document Revised: 01/25/2018 Document Reviewed: 01/01/2017 [employer] Patient Education ??? 2019 [employer] INPATIENT PATIENT SUMMARY Observed: 04/2024 8:18 AM Status: F Source: [facility] Inpatient Patient Summary [address] [address] [facility] Clinical Discharge Instructions PERSON INFORMATION Name: MATIAS SUERO [facility]#:[id number] PHYSICIANS Admitting Physician: Juan David FLETCHER MD Attending Physician: Juan David FLETCHER MD PCP: Jordyn ROJAS, Ramirez Discharge Diagnosis: Diverticulosis of sigmoid colon Comment: PATIENT EDUCATION INFORMATION Instructions: Medication Leaflets: Follow up: With: Address: When: Juan David FLETCHER [address] [place], [place] [address], [address], [place] [address] [place] [address] [facility] (1) , only if needed MEDICATION LIST Medications to Continue with No Changes Other Medications aspirin (aspirin 81 mg Oral EC Tab) 1 Tablets By Mouth every day. atorvastatin (atorvastatin 40 mg Tab) 1 Tablets By Mouth every day. carbidopa-levodopa (carbidopa-levodopa 10 mg-100 mg Tab) 1 Tablets By Mouth 3 times a day. metoprolol (metoprolol 25 mg ER Tab) 0.5 Tablets By Mouth every day. multivitamin with iron 1 Tablets By Mouth every day. olodaterol-tiotropium (Stiolto Respimat 2.5 mcg-2.5 mcg inhalation aerosol) 2 Puffs Inhalation every 24 hours. pantoprazole (Pantoprazole [address] Tab) 1 Tablets By Mouth 2 times a day. sodium chloride 2 grams By Mouth 3 times a day. thiamine (thiamine 100 mg Tab) 1 Tablets By Mouth every day. Comment: OUTPATIENT SURGERY DISCHARGE INSTRUCTION Observed: 03/31/2024 8:18 AM Status: F Source: [facility] Outpatient Surgery Discharge Instruction [address] [address] Patient Discharge Instructions PERSON INFORMATION Name: MATIAS SUERO Date of : 1955 Current Date: 03/31/2024 08:18:05 PHYSICIANS Admitting Physician: Juan David FLETCHER MD Discharge Diagnosis: Diverticulosis of sigmoid colon MATIAS SUERO has been given the following list of follow-up instructions, prescriptions, and patient education materials: PATIENT FOLLOW-UP INFORMATION Diet: Other: high fiber Discharge Activity: Resume normal activities in 24 hours, Arrange for a responsible adult supervision for 24 hours Discharge Restrictions: No driving for 24 hrs, Do not operate machinery or tools, Do not make important decisions for 24 hours, Do not drink alcoholic beverages for 24 hours Call Your Doctor For: Persistent or heavy bleeding, Temperature above 101.5 degrees, Severe pain at the operative site, Persistent vomiting IF UNABLE TO CONTACT YOUR PHYSICIAN AND YOU FEEL IT IS AN EMERGENCY, GO TO THE NEAREST EMERGENCY ROOM OR CALL 911 I, MATIAS SUERO, have received the attached patient education materials/instructions and have verbalized understanding: May we do a follow up call? Yes No I was present when discharge instructions were given Patient Signature Date Clinican/Nurse Signature Date Follow up: With: Address: When: Juan David FLETCHER [address] [place] [address], [facility] [address], [address] [address] [facility] (1) , only if needed Pharmacy Information: You may receive a survey from [employer] asking you to rate your care experience. Your feedback is important and will help us understand what we do well and how we can improve the quality of care we provide to you, your loved ones and our community. It???s an honor to serve you. Thank you for choosing [facility] HERE ARE THE MEDICATION CHANGES THAT OCCURRED DURING YOUR HOSPITAL STAY Medications to Continue with No Changes Other Medications aspirin (aspirin 81 mg Oral EC Tab) 1 Tablets By Mouth every day. atorvastatin (atorvastatin 40 mg Tab) 1 Tablets By Mouth every day. carbidopa-levodopa (carbidopa-levodopa 10 mg-100 mg Tab) 1 Tablets By Mouth 3 times a day. metoprolol (metoprolol 25 mg ER Tab) 0.5 Tablets By Mouth every day. multivitamin with iron 1 Tablets By Mouth every day. olodaterol-tiotropium (Stiolto Respimat 2.5 mcg-2.5 mcg inhalation aerosol) 2 Puffs Inhalation every 24 hours. pantoprazole (Pantoprazole [address] Tab) 1 Tablets By Mouth 2 times a day. sodium chloride 2 grams By Mouth 3 times a day. thiamine (thiamine 100 mg Tab) 1 Tablets By Mouth every day. PATIENT EDUCATION INFORMATION Instructions: Medication Leaflets: MAIN OR PREOPERATIVE RECORD Observed: 8:00 AM Status: F Source: [facility] Main OR Preoperative Record Holding Area Document Type FT Summary Primary Physician: Juan David FLETCHER MD Finalized Date/Time: 03/31/24 07:07:43 Pt. Name: MATIAS SUERO/Sex: 1955 Male Med Rec #: [id number] Physician: Juan David FLETCHER MD Financial #: [id number] Pt. Type: O Room/Bed: / Admit/Disch: 03/31/24 06:47:44 - Institution: Case Times Holding FT Pre-Care Text: Verifies consent for planned procedure, identifies individual values and wishes concerning care, includes family members in perioperative teaching Secures patient's records' belongings, and valuables, maintains patient's dignity and privacy, and maintains patient confidentiality Entry 1 In Holding 03/31/24 06:55:00 Outcomes Met? Yes Last Modified By: Conchita Galarza RN 03/31/24 07:06:56 Post-Care Text: The patient participates in decisions affecting his or her perioperative plan of care The patient's right to privacy is maintained Surgery Checklist FT Entry 1 Patient Birthday, ID Band Procedure History and Physical, Identification: Check, Patient Verification: Surgical Consent, With Participation Patient NPO after Midnight: Yes Date/Time: 03/31/24 02:30:00 Personal Items CLOTHES, SHOES, METAL Limitations: N/A Comment: IN NECK Complaints of Pain: No Pain Comment: DENIES Operative Site n/a Marked By: N/A Marking: Availability Equipment Verified: Does Patient Smoke No Patient states Yes Comment - Adult - RIGOBERTO postop adult Supervision supervision available Case Cancelled in No Holding Area see comments below for reason Last Modified By: Conchita Galarza RN 03/31/24 07:07:42 General Comments: Pt finished colon prep at 0230, states stool is clear liquid yellow, has been NPO since. /,RN Finalized By: Conchita Galarza RN Document Signatures Signed By: Conchita Galarza RN 03/31/24 07:07 MAIN OR PACU II RECORD Observed: 025 7:56 AM Status: F Source: [facility] Main OR PACU II Record PACU Phase II Document Type FT Summary Primary Physician: Juan David LFETCHER MD Finalized Date/Time: 03/31/24 08:45:14 Pt. Name: MATIAS SUERO D.O.B./Sex: 1955 Male Med Rec #: [id number] Physician: Juan David FLETCHER MD Financial #: [id number] Pt. Type: O Room/Bed: / Admit/Disch: 03/31/24 06:47:44 - Institution: Case Times PACU II FT Pre-Care Text: Identifies barriers to communication and implements measures to provide psychological support and determines knowledge level Develops individualized plan of care, and ensures continuity of care Maintains patient's dignity and privacy, and maintains patient confidentiality Identifies and reports philosophical, cultural, and spiritual beliefs and values Identifies individual values and wishes concerning care administers prescribed antibiotic therapy and immunizing agents as ordered, Evaluates postoperative tissue perfusion Implements thermoregulation measures, and monitors body temperature Evaluates postoperative respiratory status Evaluates postoperative cardiac status Evaluates postoperative neurological status Assesses pain control, collaborated in initiating patient-controlled analgesia and implements alternative methods of pain control Verifies allergies, administers prescribed medications and solutions, evaluates response to medications Entry 1 In PACU II 03/31/24 08:16:00 Discharge from PACU 03/31/24 08:36:00 II Outcomes Met? Yes Last Modified By: Arti Aiken I 03/31/24 08:45:10 Post-Care Text: The patient demonstrates knowledge of the expected response to the operative or invasive procedure The patient's care is consistent with the individualized perioperative plan of care The patient's right to privacy is maintained The patient's value system, lifestyle, ethnicity, and culture are considered, respected, and incorporated into the perioperative plan of care The patient participates in decisions affecting his or her perioperative plan of care. The patient is free from signs and symptoms of infection The patient has wound/tissue perfusion consistent with or improved from baseline levels established preoperatively The patient is at or returning to normothermia at the conclusion of the immediate postoperative period The patient's respiratory function is consistent with or improved from baseline levels established preoperatively The patient's cardiovascular status is consistent with or improved from baseline levels established preoperatively The patient's neurological status is consistent with or improved from baseline levels established preoperatively The patient demonstrates and/or reports adequate pain control throughout the perioperative period The patient received appropriate medication(s), safely administered during the perioperative period Finalized By: Arti Aiken I Document Signatures Signed By: Arti Aiken I 03/31/24 08:45 MAIN OR INTRAOPERATIVE RECORD Observed: 03/31/2024 7:56 AM Status: C Source: [facility] Main OR Intraoperative Recor d IntraOp Document Type FT Summary Primary Physician: Juan David FLETCHER MD Finalized Date/Time: 04/02/24 10:13:52 Pt. Name: MATIAS SUERO/Sex: 1955 Male Med Rec #: [id number] Physician: BRUNO ROJAS, Juan David Cole Financial #: [id number] Pt. Type: O Room/Bed: / Admit/Disch: 03/31/24 06:47:44 - 03/31/24 23:59:59 Institution: Case Times FT Entry 1 Patient Times In Room 03/31/24 07:54:00 Out Room 03/31/24 08:15:00 Procedure Times Start 03/31/24 07:56:00 Stop 03/31/24 08:12:00 Anesthesia Times Start 03/31/24 07:54:00 Stop 03/31/24 08:15:00 Time at [facility] 03/31/24 08:04:00 Last Modified By: Terra SCHMID, Naya 03/31/24 08:13:19 General Comments: 04/02/24 Chart opened to review and send charges [facility]FA Case Attendance FT Entry 1 Entry 2 Entry 3 Case Attendee BRUNO ROJAS, Juan David Moore [facility], Star Ellison RN, Naya Role Performed Surgeon - Primary Anesthesiologist Billboard Poster Helper - Primary Accountant Certified Public Time In 03/31/24 07:54:00 03/31/24 07:54:00 03/31/24 07:54:00 Time Out 03/31/24 08:15:00 03/31/24 08:15:00 03/31/24 08:15:00 Procedure COLONOSCOPY(.) COLONOSCOPY(.) COLONOSCOPY(.) Comments Dr Rahel Longoria supervising Last Modified By: Terra RN, Naya Ellison RN, Naya Ellison RN, Naya 03/31/24 08:13:20 03/31/24 08:41:56 03/31/24 08:13:20 Entry 4 Entry 5 Case Attendee Dalila Purdy Micala E Role Performed Scrub - Primary Staff - Other Time In 03/31/24 07:54:00 03/31/24 07:54:00 Time Out 03/31/24 08:15:00 03/31/24 08:15:00 Procedure COLONOSCOPY(.) COLONOSCOPY(.) Comments help in room Last Modified By: Terra RN, Naya Ellison RN, Naya 03/31/24 08:13:20 03/31/24 08:13:20 Perioperative Protocols FT Pre-Care Text: Implements protective measures prior to operative or invasive procedure, confirms identity before the operative or invasive procedure, verifies operative procedure, surgical site, and laterality Entry 1 Procedure(s) COLONOSCOPY(.) Patient Identity Birthday, ID Band Verified (select at Check, Patient least 2): Participation Consents / H and P Anesthesia Consent, Operative Site N/A Verified H&P, Surgery/Procedure Marking Verified Consent Surgical Site No Laterality Verified n/a Verified Procedure Verified Yes Correct Patient Yes Position Verified Availability Equipment, Medication Prep Dry n/a Verified (If Applicable) PreOp Antibiotic No Time Out Juan David FLETCHER MD, Given Participants Teresa CLEMENTE, Star Isaac, Terra SCHMID, Gurwinder Person Kirstyn K, Sparks, Micala E Time Out Complete 03/31/24 07:55:00 Outcomes Met? Yes Last Modified By: Naya Ellison RN 03/31/24 08:00:52 Post-Care Text: The patient is free from signs and symptoms of injury caused by extraneous objects Allergy Information FT Pre-Care Text: Verifies allergies Entry 1 Allergies Reviewed? Yes Allergies Reviewed Self/Patient With Outcomes Met? Yes Last Modified By: Naya Ellison RN 03/31/24 08:01:02 Post-Care Text: The patient received appropriate medication(s) safely administered during the perioperative period Surgical Procedures FT Entry 1 Procedure Description Procedure COLONOSCOPY Modifiers . Surgeon Description COLONOSCOPY Primary Procedure Yes Primary Surgeon Juan David FLETCHER MD Start 03/31/24 07:56:00 Stop 03/31/24 08:12:00 Anesthesia Type General Surgical Service General Wound Class 2 - Clean-Contaminated Last Modified By: Naya Ellison RN 03/31/24 08:12:22 General Case Data FT Pre-Care Text: Classifies surgical wound, implements aseptic technique, initiates traffic control Entry 1 Case Information OR ENDO 2 FT Case Level Level 2 Wound Class 2 - Clean-Contaminated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 fiber product such as Citrucel or Metamucil once a day. In the past people with diverticulosis were to avoid nuts, corn, and seeds. This has not been found to be true. If you find that certain foods create cramping or bloating, avoid that food. Foods high in fiber include: Fresh fruits, fresh vegetables, legumes (beans), whole wheat bread, bran muffins or cereal, and nuts. See the table below for examples of high fiber foods. Remember, your goal is 20- 35 grams per day. Amount of fiber in different foods Food Serving Grams of fiber Fruits Apple (with skin) 1 medium apple 4.4 Banana 1 medium banana 3.1 Oranges 1 orange 3.1 Prunes 1 cup, pitted 12.4 Juices Apple, unsweetened, w/added ascorbic acid 1 cup 0.5 Grapefruit, white, canned, sweetened 1 cup 0.2 Grape, unsweetened, w/added ascorbic acid 1 cup 0.5 [place] 1 cup 0.7 Vegetables Cooked Green beans 1 cup 4.0 Carrots 1/2 cup sliced 2.3 Peas 1 cup 8.8 Potato (baked, with skin) 1 medium potato 3.8 Raw [place] (with peel) 1 cucumber 1.5 Lettuce 1 cup shredded 0.5 Tomato 1 medium tomato 1.5 Spinach 1 cup 0.7 Legumes Baked beans, canned, no salt added 1 cup 13.9 Kidney beans, canned 1 cup 13.6 Murray beans, canned 1 cup 11.6 Lentils, boiled 1 cup 15.6 Breads, pastas, flours Bran muffins 1 medium muffin 5.2 Oatmeal, cooked 1 cup 4.0 White bread 1 slice 0.6 Whole-wheat bread 1 slice 1.9 Pasta and rice, cooked Macaroni 1 cup 2.5 Rice, brown 1 cup 3.5 Rice, white 1 cup 0.6 Spaghetti (regular) 1 cup 2.5 Nuts Almonds 1/2 cup 8.7 Peanuts 1/2 cup 7.9 Chart from [facility] 2013. SEEK IMMEDIATE MEDICAL CARE IF: You develop abdominal (belly) pain. An oral temperature above _ 101??? F__develops. Repeated vomiting occurs. Blood is being passed in stools (bright red or black tarry stools). You develop any bowel problems or changes which you have not had before. Extra Information: To learn how much fiber and other nutrients are in different foods, visit the [place] Department of Agriculture (USDA) National Nutrient Database at: http://www.Nicholas [employer]add[employer] Records.usda.gov/fnic/foodcomp/search/ Created using data from the USDA National Nutrient Database for Standard Reference. Available at http://www.[place] [place] Records.usda.gov/fnic/foodcomp/search/. Information adapted from: ExitCare??? Patient Information ???2009 [employer] [employer]. [facility] 2012 [email or web address]/[email or web address]-szfwhwa-ilrbna-the-basics OUTPATIENT SURGERY DISCHARGE INSTRUCTION Observed: 02/04/2024 9:29 AM Status: F Source: [facility] Outpatient Surgery Discharge Instruction [place] [id number] Patient Discharge Instructions PERSON INFORMATION Name: MATIAS SUERO Date of : 1955 Current Date: 02/04/2024 09:29:33 PHYSICIANS Admitting Physician: Juan David FLETCHER MD Discharge Diagnosis: Encounter for colonoscopy due to history of adenomatous colonic polyps; Personal history of adenomatous and serrated colon polyps; Personal history of gastric ulcer MATIAS SUERO has been given the following list of follow-up instructions, prescriptions, and patient education materials: PATIENT FOLLOW-UP INFORMATION Diet: Regular Discharge Activity: Resume normal activities in 24 hours, Arrange for a responsible adult supervision for 24 hours Discharge Restrictions: No driving for 24 hrs, Do not operate machinery or tools, Do not make important decisions for 24 hours, Do not drink alcoholic beverages for 24 hours Call Your Doctor For: Persistent or heavy bleeding, Temperature above 101.5 degrees, Redness, swelling, or pus at operative site, Severe pain at the operative site, Persistent vomiting IF UNABLE TO CONTACT YOUR PHYSICIAN AND YOU FEEL IT IS AN EMERGENCY, GO TO THE NEAREST EMERGENCY ROOM OR CALL 911 IPIO TERRY W, have received the attached patient education materials/instructions and have verbalized understanding: May we do a follow up call? Yes No I was present when discharge instructions were given Patient Signature Date Clinican/Nurse Signature Date Follow up: With: Address: When: Juan David FLETCHER [address], [address], [address] [address] Business (1) , only if needed Comments: will call patient to reschedule colonoscopy With: Address: When: BRUNO ROJAS, LISA Lovett [address], [address] [address] Comments: Office to call with results. Pharmacy Information: You may receive a survey from [employer] asking you to rate your care experience. Your feedback is important and will help us understand what we do well and how we can improve the quality of care we provide to you, your loved ones and our community. It???s an honor to serve you. Thank you for choosing [facility] HERE ARE THE MEDICATION CHANGES THAT OCCURRED DURING YOUR HOSPITAL STAY Medications to Continue with No Changes Other Medications aspirin (aspirin 81 mg Oral EC Tab) 1 Tablets By Mouth every day. atorvastatin (atorvastatin 40 mg Tab) 1 Tablets By Mouth every day. carbidopa-levodopa (carbidopa-levodopa 10 mg-100 mg Tab) 1 Tablets By Mouth 3 times a day. metoprolol (metoprolol 25 mg ER Tab) 0.5 Tablets By Mouth every day. multivitamin with iron 1 Tablets By Mouth every day. olodaterol-tiotropium (Stiolto Respimat 2.5 mcg-2.5 mcg inhalation aerosol) 2 Puffs Inhalation every 24 hours. pantoprazole (Pantoprazole [address] Tab) 1 Tablets By Mouth 2 times a day. sodium chloride 2 grams By Mouth 3 times a day. thiamine (thiamine 100 mg Tab) 1 Tablets By Mouth every day. PATIENT EDUCATION INFORMATION Instructions: Endoscopy Care After Procedure Please read the instructions outlined below and refer to this sheet in the next few weeks. These discharge instructions provide you with general information on caring for yourself after you leave the hospital. Your doctor may also give you specific instructions. While your treatment has been planned according to the most current medical practices available, unavoidable complications occasionally occur. If you have any problems or questions after discharge, please call your doctor. ACTIVITY ??? You may resume your regular activity but move at a slower pace for the next 24 hours. ??? Take frequent rest periods for the next 24 hours. ??? Walking will help expel (get rid of) the air and reduce the bloated feeling in your abdomen. ??? No driving for 24 hours (because of the anesthesia (medicine) used during the test). ??? You may shower. ??? Do not sign any important legal documents or operate any machinery for 24 hours (because of the anesthesia used during the test). NUTRITION ??? Drink plenty of fluids. ??? You may resume your normal diet. ??? Begin with a light meal and progress to your normal diet. ??? Avoid alcoholic beverages for 24 hours or as instructed by your caregiver. MEDICATIONS ??? You may resume your normal medications unless your caregiver tells you otherwise. WHAT YOU CAN EXPECT TODAY ??? You may experience abdominal discomfort such as a feeling of fullness or ???gas??? pains. FOLLOW-UP ??? Your doctor will discuss the results of your test with you. seek immediate medical attention if any of the following occur: ??? Excessive nausea (feeling sick to your stomach) and/or vomiting. ??? Severe abdominal pain and distention (swelling). ??? Trouble swallowing. ??? Temperature over 100 F (37.8??? C). ??? Rectal bleeding or vomiting of blood. Document Released: 09/26/2004 Document Re-Released: 08/06/2006 ExitCare??? Patient Information ???2010 [employer] [employer]. Colonoscopy Care After Surgery Please read the instructions outlined below and refer to this sheet in the next few weeks. These discharge instructions provide you with general information on caring for yourself after you leave the hospital. Your doctor may also give you specific instructions. While your treatment has been planned according to the most current medical practices available, unavoidable complications occasionally occur. If you have any problems or questions after discharge, please call your doctor. ACTIVITY You may resume your regular activity, but move at a slower pace for the next 24 hours. Take frequent rest periods for the next 24 hours. Walking will help get rid of the air and reduce the bloated feeling in your abdomen (belly). No driving for 24 hours (because of the anesthesia (medicine) used during the test). You may shower. Do not sign any important legal documents or operate any machinery for 24 hours (because of the anesthesia used during the test). NUTRITION Drink plenty of fluids. You may resume your normal diet as instructed by your doctor. Begin with a light meal and progress to your normal diet. Heavy or fried foods are harder to digest and may make you feel nauseated (sick to your stomach). Avoid alcoholic beverages for 24 hours or as instructed. MEDICATIONS You may resume your normal medications unless your doctor tells you otherwise. WHAT YOU CAN EXPECT TODAY Some feelings of bloating in the abdomen. Passage of more gas than usual. Spotting of blood in your stool or on the toilet paper. FOLLOW-UP Your doctor will discuss the results of your test with you. SEEK IMMEDIATE MEDICAL ATTENTION IF: There is more than a spotting of blood in your stool. There is abdominal distention (your abdomen is swollen). There is vomiting. You have a temperature over 101.5 F. There is abdominal pain or discomfort that is severe or gets worse throughout the day. Diverticulosis Many people have small pouches in their colon called diverticulum. The diverticulum bulge outward through weak spots in the colon. You could have one or more of these pouches in the colon. The condition of having these pouches in the colon is called diverticulosis or diverticular disease. Diverticulosis is usually diagnosed by tests to evaluate something else. For example, you may have had a colonoscopy to screen for colon cancer when the diverticulosis was found. Most people with diverticulosis do not have any discomfort or problems. If symptoms develop, they may include mild cramps, bloating, and constipation. A complication of this condition is called diverticulitis. This is when the diverticulum become inflamed and infected. How to treat diverticulosis: Increasing the amount of fiber in the diet may reduce symptoms of diverticulosis and prevent complications such as diverticulitis (infected diverticuli). Fiber keeps stool soft and lowers pressure inside the colon so that bowel contents can move through easily. You should eat 20 to 35 grams of fiber each day. The table below shows the amount of fiber in some foods that you can easily add to your diet. Adding fiber slowly may decrease the bloating and fullness sometimes felt with an immediate high fiber diet. The doctor may also recommend taking a fiber product such as Citrucel or Metamucil once a day. In the past people with diverticulosis were to avoid nuts, corn, and seeds. This has not been found to be true. If you find that certain foods create cramping or bloating, avoid that food. Foods high in fiber include: Fresh fruits, fresh vegetables, legumes (beans), whole wheat bread, bran muffins or cereal, and nuts. See the table below for examples of high fiber foods. Remember, your goal is 20- 35 grams per day. Amount of fiber in different foods Food Serving Grams of fiber Fruits Apple (with skin) 1 medium apple 4.4 Banana 1 medium banana 3.1 Oranges 1 orange 3.1 Prunes 1 cup, pitted 12.4 Juices Apple, unsweetened, w/added ascorbic acid 1 cup 0.5 Grapefruit, white, canned, sweetened 1 cup 0.2 Grape, unsweetened, w/added ascorbic acid 1 cup 0.5 [place] 1 cup 0.7 Vegetables Cooked Green beans 1 cup 4.0 Carrots 1/2 cup sliced 2.3 Peas 1 cup 8.8 Potato (baked, with skin) 1 medium potato 3.8 Raw [place] (with peel) 1 cucumber 1.5 Lettuce 1 cup shredded 0.5 Tomato 1 medium tomato 1.5 Spinach 1 cup 0.7 Legumes Baked beans, canned, no salt added 1 cup 13.9 Kidney beans, canned 1 cup 13.6 [place] beans, canned 1 cup 11.6 Lentils, boiled 1 cup 15.6 Breads, pastas, flours Bran muffins 1 medium muffin 5.2 Oatmeal, cooked 1 cup 4.0 White bread 1 slice 0.6 Whole-wheat bread 1 slice 1.9 Pasta and rice, cooked Macaroni 1 cup 2.5 Rice, brown 1 cup 3.5 Rice, white 1 cup 0.6 Spaghetti (regular) 1 cup 2.5 Nuts Almonds 1/2 cup 8.7 Peanuts 1/2 cup 7.9 Chart from [facility] 2013. SEEK IMMEDIATE MEDICAL CARE IF: You develop abdominal (belly) pain. An oral temperature above _ 101??? F__develops. Repeated vomiting occurs. Blood is being passed in stools (bright red or black tarry stools). You develop any bowel problems or changes which you have not had before. Extra Information: To learn how much fiber and other nutrients are in different foods, visit the [place] Department of Agriculture (USDA) National Nutrient Database at: http://www.nal.usda.gov/fnic/foodcomp/search/ Created using data from the USDA National Nutrient Database for Standard Reference. Available at http://www.nal.usda.gov/fnic/foodcomp/search/. Information adapted from: ExitCare??? Patient Information ???2009 [employer] 2012 http://www.J[employer]/contents/bpqpxlwgvmrx-bwncktx-pzbpsd-the-basics Medication Leaflets: INPATIENT PATIENT SUMMARY Observed: 10/2023 9:29 AM Status: F Source: [facility] Inpatient Patient Summary [address] [address] [facility] Clinical Discharge Instructions PERSON INFORMATION Name: MATIAS SUERO PHYSICIANS Admitting Physician: Juan David FLETCHER MD Attending Physician: Juan David FLETCHER MD PCP: Jordyn ROJAS, Ramirez Discharge Diagnosis: Encounter for colonoscopy due to history of adenomatous colonic polyps; Personal history of adenomatous and serrated colon polyps; Personal history of gastric ulcer Comment: PATIENT EDUCATION INFORMATION Instructions: Endoscopy, Care After Procedure [facility] (CUSTOM); Colonoscopy, Care After Surgery [facility] (CUSTOM); Diverticulosis [facility] (CUSTOM) Medication Leaflets: Follow up: With: Address: When: Juan David FLETCHER [facility] [employer], [facility] [address], [place] [phone] Business (7) , only if needed Comments: will call patient to reschedule colonoscopy With: Address: When: Juan David FLETCHER MD, LISA [address] [place] [address], [facility] [address] [place] [phone] Comments: Office to call with results. MEDICATION LIST Medications to Continue with No Changes Other Medications aspirin (aspirin 81 mg Oral EC Tab) 1 Tablets By Mouth every day. atorvastatin (atorvastatin 40 mg Tab) 1 Tablets By Mouth every day. carbidopa-levodopa (carbidopa-levodopa 10 mg-100 mg Tab) 1 Tablets By Mouth 3 times a day. metoprolol (metoprolol 25 mg ER Tab) 0.5 Tablets By Mouth every day. multivitamin with iron 1 Tablets By Mouth every day. olodaterol-tiotropium (Stiolto Respimat 2.5 mcg-2.5 mcg inhalation aerosol) 2 Puffs Inhalation every 24 hours. pantoprazole (Pantoprazole [address] Tab) 1 Tablets By Mouth 2 times a day. sodium chloride 2 grams By Mouth 3 times a day. thiamine (thiamine 100 mg Tab) 1 Tablets By Mouth every day. Comment: DISCHARGE INSTRUCTIONS Observed: 024 9:28 AM Status: F Source: [facility] Discharge Instructions MATIAS SUERO :1955 Visit Date:02/04/2024 Inpatient Discharge Instructions Your Care Team Admitting Physician - Juan David FLETCHER MD Referring Physician - Juan David FLETCHER MD Reason for Your Visit HX COLON POLYPS, ULCER Your Diagnosis Encounter for colonoscopy due to history of adenomatous colonic polyps Personal history of adenomatous and serrated colon polyps Personal history of gastric ulcer This Is Your Medications List aspirin (aspirin 81 mg Oral EC Tab) atorvastatin (atorvastatin 40 mg Tab) carbidopa-levodopa (carbidopa-levodopa 10 mg-100 mg Tab) metoprolol (metoprolol 25 mg ER Tab) multivitamin with iron olodaterol-tiotropium (Stiolto Respimat 2.5 mcg-2.5 mcg inhalation aerosol) pantoprazole (Pantoprazole [address] Tab) sodium chloride thiamine (thiamine 100 mg Tab) Procedure History Colonoscopy (02/04/2024), Esophagogastroduodenoscopy (02/04/2024), Colonoscopy (06/14/2020), Esophagogastroduodenoscopy (06/14/2020), arthroscopic capsular release left shoulder, Cardiac catheterization, Cervical discectomy, EGD - esophagogastroduodenoscopy, Prostate. What to do next Instructions From Your Doctor Event Name Event Result Discharge Activity Resume normal activities in 24 hours, Arrange for a responsible adult supervision for 24 hours Discharge Restrictions No driving for 24 hrs, Do not operate machinery or tools, Do not make important decisions for 24 hours, Do not drink alcoholic beverages for 24 hours Discharge Diet(s) Regular Call Your Doctor For Persistent or heavy bleeding, Temperature above 101.5 degrees, Redness, swelling, or pus at operative site, Severe pain at the operative site, Persistent vomiting Discharge Instructions Discharge Instructions New Follow Up Appointments after Discharge Follow Up with BRUNO ROJAS, Juan David Cole, LISA When: Comments: Office to call with results. Where: [address], [address] [place] [phone]- Medications What How Much When Instructions Next Dose Unchanged aspirin (aspirin 81 mg Oral EC Tab) 1 Tablets By Mouth Every day Unchanged atorvastatin (atorvastatin 40 mg Tab) 1 Tablets By Mouth Every day Unchanged carbidopa-levodopa (carbidopa-levodopa 10 mg-100 mg Tab) 1 Tablets By Mouth 3 times a day Unchanged metoprolol (metoprolol 25 mg ER Tab) 0.5 Tablets By Mouth Every day Unchanged multivitamin with iron 1 Tablets By Mouth Every day Unchanged olodaterol-tiotropium (Stiolto Respimat 2.5 mcg-2.5 mcg inhalation aerosol) 2 Puffs Inhalation Every 24 hours Unchanged pantoprazole (Pantoprazole [address] Tab) 1 Tablets By Mouth 2 times a day Unchanged sodium chloride 2 grams By Mouth 3 times a day Unchanged thiamine (thiamine 100 mg Tab) 1 Tablets By Mouth Every day Test Results No qualifying data available. Allergies fentanyl topical (Hallucinations) oxyCODONE (Hallucinations) Problems Ongoing - Any problem that you are currently receiving treatment for. 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 Abdominal bloating Change in bowel habits Early satiety Epigastric pain Fracture of sixth cervical vertebra Hypertension Ileus Impaired mobility Pulmonary embolism Quadriplegia Tetraplegia TIA - transient ischemic attack Education Materials Endoscopy Care After Procedure Please read the instructions outlined below and refer to this sheet in the next few weeks. These discharge instructions provide you with general information on caring for yourself after you leave the hospital. Your doctor may also give you specific instructions. While your treatment has been planned according to the most current medical practices available, unavoidable complications occasionally occur. If you have any problems or questions after discharge, please call your doctor. ACTIVITY ??? You may resume your regular activity but move at a slower pace for the next 24 hours. ??? Take frequent rest periods for the next 24 hours. ??? Walking will help expel (get rid of) the air and reduce the bloated feeling in your abdomen. ??? No driving for 24 hours (because of the anesthesia (medicine) used during the test). ??? You may shower. ??? Do not sign any important legal documents or operate any machinery for 24 hours (because of the anesthesia used during the test). NUTRITION ??? Drink plenty of fluids. ??? You may resume your normal diet. ??? Begin with a light meal and progress to your normal diet. ??? Avoid alcoholic beverages for 24 hours or as instructed by your caregiver. MEDICATIONS ??? You may resume your normal medications unless your caregiver tells you otherwise. WHAT YOU CAN EXPECT TODAY ??? You may experience abdominal discomfort such as a feeling of fullness or ???gas??? pains. FOLLOW-UP ??? Your doctor will discuss the results of your test with you. SEEK IMMEDIATE MEDICAL ATTENTION IF ANY OF THE FOLLOWING OCCUR: ??? Excessive nausea (feeling sick to your stomach) and/or vomiting. ??? Severe abdominal pain and distention (swelling). ??? Trouble swallowing. ??? Temperature over 100 F (37.8??? C). ??? Rectal bleeding or vomiting of blood. Document Released: 09/26/2004 Document Re-Released: 08/06/2006 ExitCare??? Patient Information ???2009 [employer]. Colonoscopy Care After Surgery Please read the instructions outlined below and refer to this sheet in the next few weeks. These discharge instructions provide you with general information on caring for yourself after you leave the hospital. Your doctor may also give you specific instructions. While your treatment has been planned according to the most current medical practices available, unavoidable complications occasionally occur. If you have any problems or questions after discharge, please call your doctor. ACTIVITY You may resume your regular activity, but move at a slower pace for the next 24 hours. Take frequent rest periods for the next 24 hours. Walking will help get rid of the air and reduce the bloated feeling in your abdomen (belly). No driving for 24 hours (because of the anesthesia (medicine) used during the test). You may shower. Do not sign any important legal documents or operate any machinery for 24 hours (because of the anesthesia used during the test). NUTRITION Drink plenty of fluids. You may resume your normal diet as instructed by your doctor. Begin with a light meal and progress to your normal diet. Heavy or fried foods are harder to digest and may make you feel nauseated (sick to your stomach). Avoid alcoholic beverages for 24 hours or as instructed. MEDICATIONS You may resume your normal medications unless your doctor tells you otherwise. WHAT YOU CAN EXPECT TODAY Some feelings of bloating in the abdomen. Passage of more gas than usual. Spotting of blood in your stool or on the toilet paper. FOLLOW-UP Your doctor will discuss the results of your test with you. SEEK IMMEDIATE MEDICAL ATTENTION IF: There is more than a spotting of blood in your stool. There is abdominal distention (your abdomen is swollen). There is vomiting. You have a temperature over 101.5 F. There is abdominal pain or discomfort that is severe or gets worse throughout the day. Diverticulosis Many people have small pouches in their colon called diverticulum. The diverticulum bulge outward through weak spots in the colon. You could have one or more of these pouches in the colon. The condition of having these pouches in the colon is called diverticulosis or diverticular disease. Diverticulosis is usually diagnosed by tests to evaluate something else. For example, you may have had a colonoscopy to screen for colon cancer when the diverticulosis was found. Most people with diverticulosis do not have any discomfort or problems. If symptoms develop, they may include mild cramps, bloating, and constipation. A complication of this condition is called diverticulitis. This is when the diverticulum become inflamed and infected. How to treat diverticulosis: Increasing the amount of fiber in the diet may reduce symptoms of diverticulosis and prevent complications such as diverticulitis (infected diverticuli). Fiber keeps stool soft and lowers pressure inside the colon so that bowel contents can move through easily. You should eat 20 to 35 grams of fiber each day. The table below shows the amount of fiber in some foods that you can easily add to your diet. Adding fiber slowly may decrease the bloating and fullness sometimes felt with an immediate high fiber diet. The doctor may also recommend taking a fiber product such as Citrucel or Metamucil once a day. In the past people with diverticulosis were to avoid nuts, corn, and seeds. This has not been found to be true. If you find that certain foods create cramping or bloating, avoid that food. Foods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 Insurance:M[employer]UAL OF [place]olicy Number: [id number] Date:9203-30-85YOUF [place] [address]JR: MATIAS Snow [facility] 12/27/2023 Primary Insurance:MEDICAREP olicy Number: [id number] e Date:4014-96-68Zdbb Name:Medicare TERRY W SUTPHENDOB: [id number] [place] [address] 12/27/2023 Secondary Insurance:[employer] OF [place] Number: [id number] Date:2021-10-27 MATIAS Snow SUTPHENDOB: [id number] [address] [place] [address] 11/26/2023 MATIAS SUTPHENDOB: [address] [place], [place] [id number]: (HP) Primary Insurance:MEDICAREP olicy Number: [id number] e Date:8553-56-16Vqds Name:Medicare TERRY SUTPHENDOB: [id number] [address] [place] [address] [facility] 11/26/2023 Secondary Insurance:MUTUAL OF [place]olicy Number: [id number] Date:2023-07-28 MATIAS SUTPHENDOB: [id number] [address] [place] [address] [facility] EPIC
--- NOTE | 2024-11-24 07:56 | CT_ITS ---
The [address] [address] Patient Name: MATIAS SUERO MRN: [id number] date: 1955 Sex: M Assigned Patient Location: CT Current Patient Location: CT Accession/Order Number: [id number] Exam Date: 11/24/2024 08:02 Report Date: 11/24/2024 08:48 At the request of: KELVIN WATTS DO Procedure: CT lung screening low-dose LOW-DOSE SCREENING CHEST CT WITHOUT CONTRAST COMPARISON: 11/22/2023 CLINICAL DATA: Former smoker with at least 30 pack year history Spiral axial unenhanced low-dose images were obtained through the chest. Images were reviewed using both narrow and wide window settings. This CT exam was performed using one or more following dose reduction techniques: Automated exposure control, adjustment of the mA and/or kV according to patient size, or use of iterative reconstruction technique. The heart is normal size. There is no pericardial effusion. Coronary artery disease is seen. There is no aortic aneurysm. Carotid plaque is seen at the aortic arch, descending aorta and proximal great vessels. There are paratracheal and right hilar calcified granulomas. No developing lymphadenopathy is noted. There is slight dextroscoliotic curvature and minimal endplate spurring. There is prior cervical fusion. There is scarring at the lung apices along with subpleural blebs. Additional airspace lucencies are seen. Additional minor scarring or atelectasis is seen at the lower lobes where bronchiectasis is noted. No consolidation, pleural effusion or pneumothorax is identified. There is a right middle lobe calcified granuloma. No developing nodularity is seen. Limited cuts through the upper abdomen show splenic granulomas. There is cholelithiasis. CT/CT lung screening low-dose IMPRESSION: OBSTRUCTIVE LUNG DISEASE WITH SCARRING, ATELECTASIS AND BRONCHIECTASIS. GRANULOMATOUS CHANGES. NO DEVELOPING PULMONARY NODULARITY. INCIDENTAL CHOLELITHIASIS. Lung RADS category 1 - negative Twelve-month low-dose CT follow-up suggested. Impression dictated by: Jyoti Acevedo M.D. 11/24/2024 8:48 AM Dictation Location: [place] [address] Electronically authenticated by: [id number] Date: 11/24/2024 08:48
== END 2024-11-24 07:42 | disposition home or self-care (01) ==
LOC: CT 07:42
PROVIDERS: PCP Family Medicine; Visit Provider Internal Medicine
DX: J44.9 Chronic obstructive pulmonary disease, unspecified (principal); Z87.891 Personal history of nicotine dependence; Z12.2 Encounter for screening for malignant neoplasm of respiratory organs; K80.20 Calculus of gallbladder without cholecystitis without obstruction
CPT/HCPCS: 71271